=== PATIENT | female | born 1950 | race Hispanic/Latino ===

== ENCOUNTER 2019-04-08 18:41 | Emergency (ER) | payer OTHER ==
--- OUTSIDE RECORDS SUMMARY | 2019-04-08 18:42 | XMS REPORT ---
:1950 Author Organization [facility] Address [address] [place] [address] Dr. Sanders [address] [place] [id number] Care Team Providers Name Role Phone Unavailable Unavailable Unavailable Problems This patient has no known problems. Allergies, Adverse Reactions, Alerts This patient has no known allergies or adverse reactions. Medications This patient has no known medications.
[2019-04-08] MEDS ORDERED: HYDROCODONE/APAP 5/325 MG TAB ONE (19:41)
--- NOTE | 2019-04-08 20:45 | RAD REPORT ---
EXAM DESCRIPTION: RAD - Knee Right 3 View - 04/08/2019 7:31 pm CLINICAL HISTORY: Trip and fall, knee pain COMPARISON: None. FINDINGS: No fracture, dislocation or periosteal reaction.No joint effusion seen. No joint space stephanie rowing. Multiple prior ossifications are seen along the posterior joint line and calcifications are p resent anterior to the tibial plateau. These are believed to be loose bodies. Prominent contusion or edema changes anterior to the patella and distal femur. IMPRESSION: Contusion and edema changes anterior to the knee. No fracture or acute bone finding. Clinical concerns for internal derangement or occult bony injury could be further assessed with MR im aging.
--- NOTE | 2019-04-08 21:05 | EDPHYS ---
Physician Documentation [facility] Name: Manasa Florentino Age: 68 yrs Sex: Female : 1950 Arrival Date: 04/08/2019 Time: 18:42 Bed 23 Private MD: ED Physician Sandoval Lee HPI: 04/08 20:57 This 68 yrs old Female presents to ER via Wheelchair with complaints of Fall gs Injury. 20:57 The patient presents with an injury, pain. The complaints affect the right knee. gs Context: The problem was sustained at home, resulted from the patient falling, a mis-step, the patient can partially bear weight. Onset: The symptoms/episode began/occurred acutely, just prior to arrival. Modifying factors: the symptoms are aggravated by weight bearing, bending knee. Associated signs and symptoms: Pertinent negatives numbness. Severity of symptoms: At their worst the symptoms were severe, in the emergency department the symptoms are unchanged. The patient has not experienced similar symptoms in the past. Historical: - Allergies: 18:50 No Known Allergies; la1 - PMHx: 18:50 Diabetes - NIDDM; Depression; Hyperlipidemia; Hypertension; la1 - Immunization history:: Adult Immunizations up to date. - Social history:: Smoking status: Patient/guardian denies using tobacco. - Ebola Screening: : No symptoms or risks identified at this time. ROS: 20:57 All other systems are negative. gs Exam: 20:57 Head/Face: Normocephalic, atraumatic. Eyes: Pupils equal round and reactive to light, gs extra-ocular motions intact. Lids and lashes normal. Conjunctiva and sclera are non-icteric and not injected. Cornea within normal limits. Periorbital areas with no swelling, redness, or edema. ENT: Nares patent. No nasal discharge, no septal abnormalities noted. Tympanic membranes are normal and external auditory canals are clear. Oropharynx with no redness, swelling, or masses, exudates, or evidence of obstruction, uvula midline. Mucous membranes moist. Neck: Trachea midline, no thyromegaly or masses palpated, and no cervical lymphadenopathy. Supple, full range of motion without nuchal rigidity, or vertebral point tenderness. No Meningismus. Chest/axilla: Normal chest wall appearance and motion. Nontender with no deformity. No lesions are appreciated. Cardiovascular: Regular rate and rhythm with a normal S1 and S2. No gallops, murmurs, or rubs. Normal PMI, no JVD. No pulse deficits. Respiratory: Lungs have equal breath sounds bilaterally, clear to auscultation and percussion. No rales, rhonchi or wheezes noted. No increased work of breathing, no retractions or nasal flaring. Abdomen/GI: Soft, non-tender, with normal bowel sounds. No distension or tympany. No guarding or rebound. No evidence of tenderness throughout. Back: No spinal tenderness. No costovertebral tenderness. Full range of motion. Skin: Warm, dry with normal turgor. Normal color with no rashes, no lesions, and no evidence of cellulitis. Neuro: Awake and alert, GCS 15, oriented to person, place, time, and situation. Cranial nerves II-XII grossly intact. Motor strength 5/5 in all extremities. Sensory grossly intact. Cerebellar exam normal. Normal gait. 20:57 Constitutional: The patient appears alert, awake. 20:57 Musculoskeletal/extremity: Pulses: are normal with no appreciated deficits, Sensation intact. Joints: the right knee displays painful range of motion, swelling, tenderness, abrasion. Vital Signs: 18:50 BP 111 / 56; Pulse 62; Resp 16; Temp 98.6; Pulse Ox 98% on R/A; Weight 69.4 kg; Height la1 5 ft. 0 in. (152.40 cm); 19:27 BP 121 / 68; Pulse 66; Resp 18; Pulse Ox 98% ; Pain 5/10; cr4 20:30 BP 138 / 77; Pulse 57; Resp 18; Pulse Ox 98% ; Pain 5/10; cr4 18:50 Body Mass Index 29.88 (69.40 kg, 152.40 cm) la1 MDM: 19:18 Patient medically screened. gs 20:57 Differential diagnosis: closed fracture, contusion, tendonitis. Data reviewed: vital gs signs, nurses notes, radiologic studies. Counseling: I had a detailed discussion with the patient and/or guardian regarding: the historical points, exam findings, and any diagnostic results supporting the discharge/admit diagnosis, radiology results, the need for outpatient follow up, a orthopedic surgeon. Response to treatment: the patient's symptoms have mildly improved after treatment, and as a result, I will discharge patient. 07/12 19:15 Order name: Knee Right 3 View XRAY; Complete Time: 20:47 gs 04/08 21:08 Order name: Knee Immobilizer; Complete Time: 21:51 cr4 Administered Medications: 19:28 Drug: [place] 5 mg-325 mg 1 tabs Route: PO; cr4 20:30 Follow up: Response: No adverse reaction; Pain is decreased cr4 Disposition: 04/08/19 21:04 Discharged to Home. Impression: Internal derangement of knee. - Condition is Stable. - Discharge Instructions: Knee Pain, Knee Immobilizer, [id number]. - Prescriptions for Tylenol- Codeine #4 300-60 mg Oral Tablet - take 1 tablet by ORAL route every 12 hours As needed; 10 tablet. - Medication Reconciliation Form, Thank You Letter, Antibiotic Education, Prescription Opioid Use form. - Follow up: Kendell Riggs MD; When: 2 - 3 days; Reason: Re-evaluation by your physician. Signatures: Dispatcher [employer] EDBri Oden RN RN cr4 Bo Santos RN RN la1 Sandoval Lee MD MD Corrections: (The following items were deleted from the chart) 21:18 21:04 04/08/2019 21:04 Discharged to Home. Impression: Internal derangement of knee. cr4 Condition is Stable. Forms are Medication Reconciliation Form, Thank You Letter, Antibiotic Education, Prescription Opioid Use. Follow up: Kendell Riggs; When: 2 - 3 days; Reason: Re-evaluation by your physician. gs
--- NOTE | 2019-04-08 21:05 | ER ---
Nurse's Notes [facility] Name: Manasa Florentino Age: 68 yrs Sex: Female : 1950 Arrival Date: 04/08/2019 Time: 18:42 Bed 23 Private MD: Diagnosis: Internal derangement of knee Presentation: 04/08 18:51 Presenting complaint: Patient states: Around 1600 today I tripped over the vacuum cord la1 and landed on my right knee. Knee appears swollen, limited ROM due to pain. Transition of care: patient was not received from another setting of care. Onset of symptoms was April 08, 2019. Risk Assessment: Do you want to hurt yourself or someone else? Patient reports no desire to harm self or others. Initial Sepsis Screen: Does the patient meet any 2 criteria? No. Patient's initial sepsis screen is negative. Does the patient have a suspected source of infection? No. Patient's initial sepsis screen is negative. Care prior to arrival: None. 18:51 Method Of Arrival: Wheelchair la1 18:51 Acuity: MARCELO 4 la1 Historical: - Allergies: 18:50 No Known Allergies; la1 - PMHx: 18:50 Diabetes - NIDDM; Depression; Hyperlipidemia; Hypertension; la1 - Immunization history:: Adult Immunizations up to date. - Social history:: Smoking status: Patient/guardian denies using tobacco. - Ebola Screening: : No symptoms or risks identified at this time. Screenin:00 Nutritional screening: No deficits noted. cr4 21:15 Tuberculosis screening: No symptoms or risk factors identified. Fall Risk Fall in past cr4 12 months (25 points). Secondary diagnosis (15 points) impaired mobility, Gait- Weak (10 pts.). Mental Status- Oriented to own ability (0 pts). 21:15 Abuse screen: Denies threats or abuse. cr4 Primary Survey: 21:15 A: The patient is alert. Airway: patent. Breathing/Chest: Respiratory pattern: regular. cr4 21:44 NO uncontrolled hemorrhage observed. cr4 Assessment: 19:22 General: Appears uncomfortable, well groomed. General: Behavior is calm, cooperative. cr4 Pain: Complains of pain in right knee. Pain does not radiate. Pain currently is 5 out of 10 on a pain scale. at worst was 10 out of 10 on a pain scale. Neuro: No deficits noted. Denies weakness dizziness, numbness. Cardiovascular: No deficits noted. Denies chest pain, lightheadedness, shortness of breath. Respiratory: No deficits noted. GI: No deficits noted. Patient currently denies nausea, vomiting. : Denies burning with urination. EENT: No deficits noted. Derm: Skin has lesions on scrape to right knee. Skin is red, Skin temperature is warm Reports pain that is 5 out of 10 on a pain scale. Musculoskeletal: Range of motion: limited in right knee Swelling present in left knee. Injury Description: s/p fall around 1500 today. 20:29 Reassessment: No changes from previously documented assessment. Patient and/or family cr4 updated on plan of care and expected duration. Pain level reassessed. Patient is alert, oriented x 3, equal unlabored respirations, skin warm/dry/pink. Vital Signs: 18:50 BP 111 / 56; Pulse 62; Resp 16; Temp 98.6; Pulse Ox 98% on R/A; Weight 69.4 kg; Height la1 5 ft. 0 in. (152.40 cm); 19:27 BP 121 / 68; Pulse 66; Resp 18; Pulse Ox 98% ; Pain 5/10; cr4 20:30 BP 138 / 77; Pulse 57; Resp 18; Pulse Ox 98% ; Pain 5/10; cr4 18:50 Body Mass Index 29.88 (69.40 kg, 152.40 cm) la1 ED Course: 18:42 Patient arrived in ED. as 18:50 Arm band placed on left wrist. la1 18:52 Triage completed. la1 19:07 Sandoval Lee MD is Attending Physician. gs 19:27 Knee Right 3 View XRAY In Process Unspecified. EDMS 21:04 Kendell Riggs MD is Referral Physician. gs 21:15 Patient has correct armband on for positive identification. Side rails up X2. cr4 21:15 No provider procedures requiring assistance completed. Patient did not have IV access cr4 during this emergency room visit. 21:47 Knee immobilizer applied on right knee. cr4 Administered Medications: 19:28 Drug: [place] 5 mg-325 mg 1 tabs Route: PO; cr4 20:30 Follow up: Response: No adverse reaction; Pain is decreased cr4 Outcome: 21:04 Discharge ordered by . gs 21:15 Discharged to home via wheelchair. cr4 21:15 Condition: stable 21:15 Discharge instructions given to patient, family, Instructed on discharge instructions, follow up and referral plans. medication usage, immobilizer use. Demonstrated understanding of instructions, follow-up care, medications, immobilizer use. Prescriptions given X 1. 21:18 Patient left the ED. cr4 Signatures: Dispatcher [employer] EDMS Elvira Jordan Claudia RN RN cr4 Bo Santos RN RN la1 Sandoval Lee MD MD gs Corrections: (The following items were deleted from the chart) 21:42 21:41 Abuse screen: Denies threats or abuse. cr4 cr4
== END 2019-04-08 21:18 | disposition home or self-care (01) ==
LOC: ER 18:41
DX: M23.91 Unspecified internal derangement of right knee (principal); W01.0XXA Fall on same level from slipping, tripping and stumbling without subsequent striking against object, initial encounter; Y93.E3 Activity, vacuuming; Y92.9 Unspecified place or not applicable
CPT/HCPCS: 99284